=== PATIENT | female | born 1945 | race Caucasian/White ===

== ENCOUNTER → 2020-12-22 08:05 | Outpatient (CLI) | payer OTHER, SELFPAY ==
[2020-12-22 08:34] LABS: COVID19 -Nasal RAPID Negative (Negative)
== END ==
PROVIDERS: PCP Physician Assistant Medical; Visit Provider Physician Assistant
DX: Z01.812 Encounter for preprocedural laboratory examination (principal); Z20.822 Contact with and (suspected) exposure to COVID-19
CPT/HCPCS: 87635

== ENCOUNTER → 2020-12-22 10:35 | Outpatient (CLI) | payer OTHER, SELFPAY ==
[2020-12-22 10:42] LABS: Bacteria Urine None Seen; WBC Urine None Seen (0-5/HPF)
[2020-12-22 11:13] LABS: Add Manual Diff / Slide Review NO; Basophils Absolute Auto 100 /uL (0-100); Eosinophils Absolute Auto 300 /uL (0-450); Eosinophils Percent Auto 4.8 % (2-4); Hematocrit 39.1 % (36-46); Lymphocytes Absolute Auto 1400 /uL (1100-4500); Lymphocytes Percent Auto 19.8 % (25-40); Mean Corpuscular HGB Conc 33.4 % (30-36); Mean Corpuscular Hemoglobin 30.5 PG (26-34); Mean Corpuscular Volume 91.4 fL (80-100); Monocytes Absolute Auto 500 /uL (0-900); Monocytes Percent Auto 6.9 % (3-14); Neutrophils Absolute Auto 4700 /uL (1500-7000); Neutrophils Percent Auto 67.5 % (50-75); Platelet Count 212 X10^3/uL (150-400); Red Blood Cell Count 4.27 X10^6/uL (4.0-5.2); Red Cell Distribution Width 13.8 % (11.6-14.8)
[2020-12-22 11:15] LABS: Appearance Urine UA CLEAR; Bilirubin Urine UA NEGATIVE (NEGATIVE); Color Urine UA YELLOW; Glucose Urine UA NEGATIVE (Negative); Ketones Urine UA NEGATIVE (NEGATIVE); Leukocyte Esterase Urine UA NEGATIVE (NEGATIVE); Nitrite Urine UA NEGATIVE (Negative); Occult Blood Urine UA 1+ (Negative); Protein Urine UA NEGATIVE (Negative); Urobilinogen Urine UA 0.2 E.U./dL (0.2)
[2020-12-22 11:21] LABS: Hemoglobin A1C% w Est Avg Glu 5.7 % (4.0-6.0)
[2020-12-22 11:22] LABS: pH Urine UA 5.5 (4.5-8.0)
[2020-12-22 11:25] LABS: HEMOLYSIS < 15 (0-50)
[2020-12-22 11:26] LABS: BUN Creatinine Ratio 23.2 (6-22); Blood Urea Nitrogen 16 mg/dL (7-17); Calcium 10.8 mg/dL (8.4-10.2); Carbon Dioxide 29 mmol/L (22-32); Chloride 104 mmol/L (98-107); Estimated Glomerular Filt Rate > 60.0 mL/min (>60); Glucose 88 mg/dL (80-110); Sodium 139 mmol/L (137-145)
[2020-12-22 11:30] LABS: Culture Indicated Urine Cult Not Indicated; RBC Urine 0-1/HPF (0-5/HPF)
[2020-12-22 13:20] LABS: Potassium 4.2 mmol/L (3.4-5.1)
== END ==
PROVIDERS: PCP Physician Assistant Medical; Referring Provider Orthopaedic Surgery; Visit Provider Orthopaedic Surgery
DX: Z01.812 Encounter for preprocedural laboratory examination (principal); R73.9 Hyperglycemia, unspecified; N39.0 Urinary tract infection, site not specified; Z20.822 Contact with and (suspected) exposure to COVID-19
CPT/HCPCS: 36415; 80048; 81001; 83036; 85025; 87635

== ENCOUNTER → 2021-05-04 09:54 | Outpatient (CLI) | payer OTHER, SELFPAY ==
[2021-05-04 10:55] LABS: Add Manual Diff / Slide Review NO; Basophils Absolute Auto 100 /uL (0-100); Eosinophils Absolute Auto 300 /uL (0-450); Eosinophils Percent Auto 4.6 % (2-4); Hematocrit 36.8 % (36-46); Hemoglobin 12.5 g/dL (12.0-16.0); Lymphocytes Absolute Auto 1100 /uL (1100-4500); Lymphocytes Percent Auto 20.2 % (25-40); Mean Corpuscular Hemoglobin 30.6 PG (26-34); Mean Corpuscular Volume 89.8 fL (80-100); Monocytes Absolute Auto 400 /uL (0-900); Monocytes Percent Auto 7.4 % (3-14); Neutrophils Absolute Auto 3600 /uL (1500-7000); Neutrophils Percent Auto 66.8 % (50-75); Platelet Count 193 X10^3/uL (150-400); Red Blood Cell Count 4.09 X10^6/uL (4.0-5.2); Red Cell Distribution Width 13.1 % (11.6-14.8); White Blood Cell Count 5.4 X10^3/uL (4.5-11.0)
[2021-05-04 10:56] LABS: Hemoglobin A1C% w Est Avg Glu 5.3 % (4.0-6.0)
[2021-05-04 12:04] LABS: BUN Creatinine Ratio 19.5 (6-22); Blood Urea Nitrogen 17 mg/dL (7-17); Calcium 9.8 mg/dL (8.4-10.2); Carbon Dioxide 28 mmol/L (22-32); Chloride 104 mmol/L (98-107); Estimated Glomerular Filt Rate > 60.0 mL/min (>60); Glucose 90 mg/dL (80-110); HEMOLYSIS < 15 (0-50); Potassium 3.9 mmol/L (3.4-5.1); Sodium 137 mmol/L (137-145)
== END ==
PROVIDERS: PCP Physician Assistant Medical; Referring Provider Orthopaedic Surgery; Visit Provider Orthopaedic Surgery
DX: R73.9 Hyperglycemia, unspecified (principal); N39.0 Urinary tract infection, site not specified
CPT/HCPCS: 36415; 80048; 83036; 85025

== ENCOUNTER → 2021-05-16 13:09 | Outpatient (CLI) | payer OTHER, SELFPAY ==
[2021-05-16 17:59] LABS: COVID19 -Nasal RAPID Negative (Negative)
== END ==
PROVIDERS: PCP Physician Assistant Medical; Visit Provider Nurse Practitioner Family
DX: Z20.822 Contact with and (suspected) exposure to COVID-19 (principal)
CPT/HCPCS: 87635

== ENCOUNTER 2021-05-17 09:23 | Day surgery (SDC) | payer OTHER, SELFPAY ==
[2021-05-04 07:36] VITALS: BMI 28.1
[2021-05-17 09:54] VITALS: BP 156/73; PULSE 72; RESP 16; TEMP 36.4; O2SAT 98; BMI 28.1
[2021-05-17] MEDS: MELOXICAM 7.5 MG TABLET 15 MG PO (10:12)
[2021-05-17] MEDS: ACETAMINOPHEN 325 MG TABLET 975 MG PO (10:12)
== END 2021-05-17 09:25 | disposition home or self-care (01) ==
LOC: OR 09:24 → AC 12:57
PROVIDERS: PCP Physician Assistant Medical; Referring Provider Physician Assistant Medical; Visit Provider Orthopaedic Surgery
DX: M16.11 Unilateral primary osteoarthritis, right hip (principal); Z53.09 Procedure and treatment not carried out because of other contraindication
CPT/HCPCS: 27130

== ENCOUNTER → 2021-05-23 10:25 | Outpatient (CLI) | payer OTHER, SELFPAY ==
[2021-05-23 11:29] LABS: COVID19 -Nasal RAPID Negative (Negative)
== END ==
PROVIDERS: PCP Physician Assistant Medical; Visit Provider Physician Assistant
DX: Z20.822 Contact with and (suspected) exposure to COVID-19 (principal)
CPT/HCPCS: 87635

== ENCOUNTER 2021-05-24 05:49 | Day surgery (SDC) | payer OTHER, SELFPAY ==
[2021-05-19 13:32] VITALS: BMI 28.1
[2021-05-24] VITALS (14 sets, daily range): BP systolic 106–161; BP diastolic 48–93; PULSE 63–101; RESP 10–17; TEMP 35.5–37.1; O2SAT 93–100; BMI 28.1
[2021-05-24] MEDS: LACTATED RINGERS 1,000 ML 42 ML IV (06:50)
[2021-05-24] MEDS: VANCOMYCIN 1,000 MG/200 ML PIGGYBACK 200 MG IV (06:58)
[2021-05-24] MEDS: CELECOXIB 200 MG CAPSULE PO (07:29)
--- NOTE | 2021-05-24 07:47 | PM.PREOP ---
Pre-operative Note COVID-19 COVID-19 status: Negative Interval Note History & Physical reviewed/Exam performed by Physician: Yes Changes to H&P: No
--- NOTE | 2021-05-24 07:48 | PM.OP.1 ---
Operative Date/Time/Diagnoses Date of procedure: 05/24/21 Time of procedure: 07:50 Pre-op diagnosis: right hip OA Post-op diagnosis: same Procedure & Clinicians Procedure: Right total hip arthroplasty anterior approach Same procedure as scheduled: Yes Indications: The patient has had progressively worsening right hip pain with radiographic changes consistent with arthritis. Non-operative management has failed and the patient has requested total hip replacement. The risks, benefits and alternatives to surgery were discussed with the patient prior to proceeding. Risks discussed included, but were not limited to, failure to relieve pain, leg length discrepancy, dislocation, stiffness, infection, nerve damage, deep venous thrombosis, pulmonary embolism, stroke, coma, heart attack, permanent paralysis and , as well as the potential need for eventual revision of the prosthetic. Surgeon: Rosanna Reeder Disability Representative: Keegan Garza Anesthesia Type: General and Spinal Operative Notes Findings: Severe right hip osteoarthritis, soft bone adequate stability Closure Type: primary Specimen(s): none sent Prosthetic devices, grafts, tissues, transplants, or devices: Reeder and nephew size 6 standard offset anthology, 54 mm R3 cup, 36 by -3 Oxinium femoral head, 6.5 mm x 15 mm screw Estimated Blood Loss (mL): 250 Blood products transfused: none Procedure in detail: The patient was brought to the operating room. Patient was carefully positioned in the supine position. Time-out was performed and antibiotics were given. Anesthesia was induced. She was positioned in the on the table in order to allow hyperextension of the hip. The right lower extremity was prepped and draped in a standard sterile fashion. An anterior right hip incision was made 1 fingerbreadth lateral to the anterior superior iliac spine and extended distally towards the greater trochanter. Dissection was carried out through skin and subcutaneous tissues. The skin and subcutaneous tissues were carefully injected with Lidocaine with epi. Superficial hemostasis was achieved. The fascia over the tensor fascia autumn was defined and incised with a knife. Two Allis clamps were used to grasp the fascia. Tensor fascia autumn was retracted laterally. A gelpi retractor was placed. Dissection was carried out down along the neck. The circumflex vessels were carefully identified and cauterized with the Aqua Mantis. There was good visualization of the femoral neck. A Cobra was placed superior to the neck and the gluteus fibers were carefully stripped from that superior aspect of the capsule. A 2nd retractor was placed along the inferior aspect of the neck. The rectus insertion along the capsule was partially released. A 3rd retractor that was then gently placed over the rim of the acetabulum under the rectus. Capsule was carefully incised and released from the intertrochanteric line circumferentially superior to the mid sagittal line and inferiorly to the mid sagittal line until the lesser trochanter was palpable. A tag stitch was placed both in the superior and inferior limb of the capsular insertion. Along the acetabulum capsule was also released up to the mid sagittal 12:00 position. A portion of the labrum was resected. A saw was used to perform an osteotomy at the level of the intertrochanteric line and the junction of the superior femoral neck leaving approximately 1 finger breath of residual inferior neck above the lesser trochanter. A 2nd cut was made along the femoral neck at the base of the head and a napkin ring of neck was removed. Corkscrew was placed in the femoral head and the head was removed without difficulty. Retractors were then repositioned around the acetabulum. Residual labrum was resected and additional osteophytes were removed. A reamer that was 4 mm below the templated size was placed by hand in the acetabulum and it was reamed to centralize the acetabulum. It was then reamed up to 2 under the templated size and fluoroscopy was brought in to confirm the position of the reaming and depth of reaming. I reamed 1 under the anticipated size. A trial cup was placed and noted that it was appropriately sized and fluoroscopy confirmed position and depth. The component was open and inserted without difficulty fluoroscopic imaging was used to confirm that the cup had been adequately seated and was well positioned. It was further stabilized with a single screw. Neutral poly liner was placed. The cup was tested and noted to be stable. Attention was then directed to the femur. The femur was gently hyperextended additional capsular release was performed as needed in order to allow adequate visualization of the proximal femur with elevation of the femur. Patient was placed in a hyperextended slightly adducted position with maximum external rotation. Box osteotome was used to check for any residual neck as well as sclerotic bone along the trochanter. [place] pepper was placed in the femur. Additional broaching was performed. Canal finder was used to determine the alignment of the canal and position. Size 1 broach was placed. The canal was then appropriately broached up to the templated size as long as there was adequate stability of the broach and serial advancement of the broach without excessive impingement. Specific attention was directed at avoiding varus attempting to direct the distal aspect of the broach more anteriorly and avoiding excessive anteversion. The stem was noted to be tight in the femoral canal. Trial reduction showed acceptable range of motion, good stability, no posterior impingement, spiritism of leg length and appropriate lateral shuck. I also hyperflexed the hip and checked that there was no impingement anteriorly and there was good stability with flexion, adduction and internal rotation. Marcaine and Exparel were injected. The stem was placed without difficulty. Repeat trial reduction and x-ray showed acceptable overall position, length, and no evidence of the femoral fracture. Final head was placed. Wound was meticulously irrigated with normal saline. The hip was reduced and additional Exparel and Marcaine were injected. The capsule was closed with interrupted nonabsorbable sutures. The fascia of the tensor was closed with interrupted and running Vicryl. No drain was placed. Any tensor fascia autumn muscle that appeared to be contused or injured which was a minimal amount was carefully resected. Capsule around the tensor was injected with Exparel and Marcaine. The skin was closed with barbed stitches for the subcutaneous tissue and skin. We also used surgical glue. The wound was dressed sterilely. Brief Betadine soak was also used and was meticulously irrigated with normal saline. Patient was transferred to recovery room in satisfactory condition. Complications: none Post-operative Condition: stable Disposition: Acute Care Plan for aftercare: The patient will be maintained on a standard total hip replacement protocol with weight bearing as tolerated and anterior hip precautions. The patient will receive Aspirin and sequential compression devices for DVT prophylaxis. The patient will be discharged home when safe for the home environment.
[2021-05-24] MEDS: CEFAZOLIN 2 GM/20 ML SYRINGE IV ×3 (08:02→23:30)
[2021-05-24] MEDS: TRANEXAMIC ACID 1,000 MG VIAL 2000 MG INJ ×2 (08:10→10:37)
--- NOTE | 2021-05-24 08:35 | SUR.OPER ---
Supine on padded [place] table with bilateral legs secured in padded positioning boots and suspended in positioning spars, operative leg in traction per surgeon. Head on one pillow. Arm on non-operative side secured on padded armboard <90 degrees abduction. Arm on operative side padded and resting across chest then secured with tape over sheet. Padded perineal post in place per surgeon.
[2021-05-24] MEDS: BUPIVACAINE LIPOSOME 266 MG/20 ML VIAL INJ (08:44)
[2021-05-24] MEDS: BUPIVACAINE 0.25% (PF) 30 ML, EPINEPHrine 0.15 MG INJ (08:44)
--- NOTE | 2021-05-24 10:32 | DI.RAD.S_ITS ---
PROCEDURE: XR PELVIS 1-2V INDICATIONS: RT TOTAL HIP TECHNIQUE: Intra-operative view of the pelvis and hip acquired. 2 images. COMPARISON: [facility], CR, XR HIP W PEL IF DONE RT 2V, 05/24/2021, 12:13. FINDINGS: Bones: Intraoperative devices prior to placement of arthroplasty prostheses are in expected positions. No fractures or suspicious bony lesions. Soft tissues: Overlying surgical retractors are present, along with other intraoperative changes. IMPRESSION: Expected intraoperative location of the right hip arthroplasty. Dictated by: Preston Kaur M.D. on 05/24/2021 at 12:57 Approved by: Preston Kaur M.D. on 05/24/2021 at 12:58
--- NOTE | 2021-05-24 10:33 | DI.RAD.S_ITS ---
PROCEDURE: XR HIP W PEL IF DONE RT 2V INDICATIONS: RT TOTAL HIP TECHNIQUE: AP pelvis and lateral view of the right hip acquired. COMPARISON: [facility], [place], XR PELVIS 1-2V, 05/24/2021, 10:22. FINDINGS: Bones: Patient is status post right hip arthroplasty, with hardware components in expected positions. The hip joint appears congruent. The visualized bony structures appear intact. Soft tissues: Overlying postoperative changes are noted. No suspicious soft tissue densities. IMPRESSION: Expected immediate postoperative appearance of right hip arthroplasty. Dictated by: Chris Schaffer [facility] Interpreted: Odilia Esqueda MD on 05/24/2021 at 13:06 Transcribed by: JASON on 05/24/2021 at 13:06 Approved by: Odilia Esqueda MD, PhD on 05/24/2021 at 14:25
--- NOTE | 2021-05-24 11:31 | SUR.PHASEI ---
Report to Avel SANDERSON
[2021-05-24] MEDS: HYDROMORPHONE 2 MG TABLET PO (12:17)
[2021-05-24] MEDS: ONDANSETRON 4 MG/2 ML INJ IV ×2 (12:18→20:59)
[2021-05-24] MEDS: LACTATED RINGERS 1,000 ML 125 ML IV (12:46)
[2021-05-24] MEDS: IBUPROFEN 400 MG TABLET PO ×2 (12:51→20:36)
--- NOTE | 2021-05-24 15:10 | PT.IPTN ---
Current Diagnoses Unilateral primary osteoarthritis, right hip (05/24/21) Surgery Performed Operation Date: 05/24/21 07:45 Actual Procedures p Total Hip Arthroplasty/Anterior Approach(Right) - Rosanna Reeder MD Physical Therapy Treatment Note M3 PT-IP Subjective Start: 05/24/21 16:23 Freq: NEEDED Status: Active Protocol: Document 05/24/21 15:10 AB (Rec: 05/24/21 16:27 AB [id number]) Subjective Physical Therapy Visit Type Type Patient Refusal Notes pt refused PT. stated that she wants to do it tomorrow morning. PLOF and home set up obtained.
[2021-05-24] MEDS: ACETAMINOPHEN 325 MG TABLET 650 MG PO ×2 (15:33→20:36)
[2021-05-24] MEDS: METOPROLOL ER 50 MG TABLET 150 MG PO (20:35)
[2021-05-24] MEDS: ASPIRIN EC 81 MG TABLET PO (20:36)
[2021-05-24] MEDS: DOCUSATE 100 MG CAPSULE PO (20:36)
[2021-05-25 00:08] VITALS: RESP 16
[2021-05-25] MEDS: IBUPROFEN 400 MG TABLET PO ×4 (02:49→13:23)
[2021-05-25 02:51] VITALS: BP 130/75; PULSE 95; RESP 16; TEMP 36.6; O2SAT 97
[2021-05-25 06:53] LABS: Hematocrit 33.7 % (36-46); Hemoglobin 11.5 g/dL (12.0-16.0)
[2021-05-25 07:25] VITALS: BP 153/74; PULSE 91; RESP 16; TEMP 36.3; O2SAT 94
[2021-05-25 07:55] VITALS: O2SAT 94
--- NOTE | 2021-05-25 08:30 | PT.IIE ---
Current Diagnoses Unilateral primary osteoarthritis, right hip (05/24/21) Surgery Performed Operation Date: 05/24/21 07:45 Actual Procedures p Total Hip Arthroplasty/Anterior Approach(Right) - Rosanna Reeder MD Medical History (Last Reviewed 05/25/21 @ 10:44 by Keegan Garza PA-C) Breast cancer (2017) CAD (coronary artery disease) Encephalitis HLD (hyperlipidemia) [place] (hard of hearing) HTN (hypertension) Hypothyroidism Jaundice Osteoarthritis SVT (supraventricular tachycardia) Physical Therapy Inpatient Evaluation/Re-Eval M1 PT/OT-IP Prior Functional Status Start: 05/24/21 16:23 Freq: NEEDED Status: Active Protocol: Document 05/25/21 08:30 AB (Rec: 05/25/21 11:22 AB [email or web address]) Medical Review Prior Functional Status Medical History Reviewed Yes Mobility and Gait pt stated that she is independent with all mobilities and ambulation without AD Social History Household Members spouse Living Arrangements House Number of Floors (Floors) Two Floors Number of Stairs To Enter/Railing? 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 M2 PT-IP Current Condition Start: 05/24/21 16:23 Freq: NEEDED Status: Active Protocol: Document 05/25/21 08:30 AB (Rec: 05/25/21 11:22 AB [email or web address]) Physical Therapy Current Condition Current Condition Evaluation Date 05/25/21 Treatment Diagnosis s/p R RIGOBERTO anterior approach; difficulty in walking Onset Date 05/24/21 M3 PT-IP Subjective Start: 05/24/21 16:23 Freq: NEEDED Status: Active Protocol: Document 05/25/21 08:30 AB (Rec: 05/25/21 11:22 AB [email or web address]) Subjective Physical Therapy Visit Type Type Initial Evaluation Visit Start Time 08:30 Visit Stop Time 09:07 Total Visit Minutes 37 Number of DECKHAND Visits 0 Physical Therapy Visit Comments Patient Comments agreeable to do PT; has slight confusion Therapy Pain Assessment Pain When Pain Assessed At Rest Pain Present Pain Present Pain Reported Location Right Hip Scale Used pain scale not stated but pain increases with mobility Description Sharp Pain Management Techniques Distraction,Modification of Treatment,Re-positioning, Timing of Activity with Medications M4 PT-IP Mobility and Gait Start: 05/24/21 16:23 Freq: NEEDED Status: Active Protocol: Document 05/25/21 08:30 AB (Rec: 05/25/21 11:22 AB [email or web address]) PT-Bed Mobility Assessment Supine to Sit Supine to Sit Standby Assistance PT-Transfer Assessment Sit to and From Stand Sit to and from Stand Contact Guard Assistance,1 Person Assistance Equipment Transfer Assistive Device Gait Belt,Front Wheeled Walker Orthotic/Prosthetic Devices or Brace: No Transfers Transfer Destination Chair Transfer Technique Stand Step Pivot Transfer Ability Level of Assist Contact Guard Assistance,Use of Upper Extremities Comments Mobility Comments educated pt on hip precautions and pt requires cues to recall. completed supine to sit SBA. able to sit on EOB SBA. completed step transfer to chair using FWW CGA and cues for hip precautions. pt ambulated in room using FWW ~ 30 ft CGA and cues. pt with decrease safety awareness affecting mobility. pt agreed to do stairs. ambulated in the hallway using FWW ~ 75 ft CGA to min A and cues. c/o increase R hip pain. educated on stair climbing. completed up/down stair holding on to R rail with B hands min A and max cues. repeated x 2 sets. pt assisted back to her room. ambulated from w/c to the chair using FWW CGA to min A. Asked pt if spouse can come in for caregiver training and stated that spouse is working today and tomorrow and will not be able to come for training. Asked pt to just call and let her spouse know regarding caregiver training. positioned pt on the chair. call light and table placed within reach. nurse in room and aware of pt' s mobility and pt is not ready for d/c at this time. Gait Assessment Gait Gait Assistance Required: Contact Guard Assist,Minimum Assistance Distance (Feet) 75 Able to Maintain Weight Bearing Status Yes During Gait Assistive Devices Assistive Device Gait Belt,Front Wheeled Walker Orthotic/Prosthetic Devices or Brace: No Gait Deviations General Gait Pattern Antalgic,Decreased Stride Length,Decreased Feet Clearance,Step-to Gait Factors Limiting Gait Function Factors Limiting Gait Function Decreased Activity Tolerance, Decreased Strength,Limited Range of Motion,Pain,Poor Balance,Poor Safety Awareness Stair Climbing Assessment Evaluation Level of Assist On Stairs Minimal Assistance Devices Stair Climbing Assistive Devices Right Railing Technique/Endurance Stair Climbing Direction Ascend and Descend Stair Climbing Technique Step to Step Number of Steps Climbed 3 Query Text: Stair Climbing Set # Repetitions (reps) 2 PT-Balance Assessment Sitting Balance and Reactions Static Sitting Balance Ability Good Dynamic Sitting Balance Ability Good Standing Balance and Reactions Static Standing Balance Ability Fair Dynamic Standing Balance Ability Fair Device Used FWW M5 PT-IP Objective Assessments Start: 05/24/21 16:23 Freq: NEEDED Status: Active Protocol: Document 05/25/21 08:30 AB (Rec: 05/25/21 11:22 AB [email or web address]) Orientation Orientation/Cognition Level of Alertness Alert Orientation Name,Place,Situation Safety Awareness Decreased Safety Awareness Memory Description Short Term Impaired Gross Range of Motion Lower Extremity ROM Assessment Within Functional Limits Strength Lower Extremity Strength Assessment Right Impaired Hip 3+/5 Knee 4-/5 Sensation Assessment Sensation Gross Sensation WNL Muscle Tone Muscle Tone WNL Yes M6 PT-IP Treatment Start: 05/24/21 16:23 Freq: NEEDED Status: Active Protocol: Document 05/25/21 08:30 AB (Rec: 05/25/21 11:22 AB [email or web address]) Physical Therapy Treatment Education Education Provided Precautions,Weight Bearing Status,Post-Op Packet,Safety M7 PT-IP Assessment and Plan Start: 05/24/21 16:23 Freq: NEEDED Status: Active Protocol: Document 05/25/21 08:30 AB (Rec: 05/25/21 11:22 AB [email or web address]) PT Summary Assessment and Plan Potential Rehabilitation Potential Fair Status of Condition at Evaluation Stable Summary Impairments Pain,ROM,Strength,Balance, Coordination,Sensation,Tone, Cognition,Bed Mobility, Transfers,Gait,Activity Tolerance Assessment Summary pt requiring CGA to min A with mobility and requires max cues for hip precautions and safety. pt can be impulsive. informed pt regarding mobility and need for caregiver training and stated that spouse will not be able to come for training. will continue to assess progress for safe d/c plan. Goals Bed Mobility Goal Independent Transfer Goal Independent,Front Wheeled Walker Gait Goal Independent,Front Wheel Walker Gait Distance 200 Days to Meet Goals 5 Frequency of Treatment Frequency Of Treatment Twice a Day Treatment Plan Physical Therapy Treatment Plan Bed Mobility Training,Transfer Training,Gait Training, Therapeutic Exercise,Balance Retraining,Post Op Education, Discharge Planning,Hot or Cold Pack,Neuromuscular Re-ed, Coordination Retraining,Manual Therapy Precautions Anterior Hip Precautions No Hip Extension,No Hip External Rotation Weight Bearing Status Weight Bearing Status Weight Bear as Tolerated Allowed Weight Bearing Amount (enter % WBAT RLE or #) (%) Recommendations To Nursing Amount of Assist Needed 1 Person Assist Discharge Recommendations PT Discharge Recommendations Home with Assistance,Home with / Assist Available, Outpatient PT Transportation Needs at Discharge Private Vehicle
[2021-05-25] MEDS: ACETAMINOPHEN 325 MG TABLET 650 MG PO ×2 (09:01→15:00)
[2021-05-25] MEDS: DOCUSATE 100 MG CAPSULE PO (09:01)
[2021-05-25] MEDS: METOPROLOL ER 50 MG TABLET 150 MG PO (09:01)
[2021-05-25] MEDS: ASPIRIN EC 81 MG TABLET PO (09:01)
[2021-05-25] MEDS: ATORVASTATIN 20 MG TABLET PO (09:02)
--- NOTE | 2021-05-25 10:42 | P.DS_ITS ---
History of Present Illness History of Present Illness Date Patient Seen: 05/25/21 Time Patient Seen: 07:45 Chief complaint: Hip pain Narrative: Patient's pain is [id number]. Denies fever or chills. No nausea or vomiting. Discharge Providers Provider Discharge Date: 05/25/21 Primary care physician: Stacey Zaragoza PA-C Consults: 05/24/21 08:59 Consult to Anesthesiology Routine Comment: Consulting Provider: Anesthesiologist Reason for consultation: Regional block for post operative pain control 05/24/21 12:33 Consult to Discharge Planning Routine Comment: Consult to Physical Therapy Evaluate & Treat Comment: Physician Instructions: post op RIGOBERTO protocol Consult to Respiratory Therapy Evaluate & Treat Comment: Physician Instructions: Evaluate and treat Discharge provider: Keegan Garza PA-C Summary Hospital Course Discharge Diagnosis: right hip OA Hospital Course: Patient admitted to the hospital for right total hip arthroplasty, anterior approach. Patient consented to the same. Patient taken to the operating room on May 24, 2021. Patient back in her room recovering well as in stable condition. Patient will work with physical therapy and be discharged home today if safe for home environment. Exam Vital Signs (past 8 hours): - 05/25/21 02:51 05/25/21 07:25 05/25/21 07:55 Temperature 97.8 F 97.3 F L Pulse Rate 95 H 91 H Respiratory Rate 16 16 Blood Pressure 130/75 153/74 H Pulse Oximetry 97 94 94 Oxygen Delivery Method Room Air Oxygen Flow Rate 0 Narrative Exam Narrative: Pleasant 76-year-old female resting comfortably in bed in no apparent distress. Dressing is Clean, dry, intact.. Motor functions intact distal lower extremities. Sensation grossly intact to light touch bilateral lower extremities. Objective Labs Result Diagrams: 05/25/21 06:35 Labs: Laboratory Results - last 24 hr 05/25/21 06:35 Hgb 11.5 L Hct 33.7 L PFSH Medical History Breast cancer (2017) CAD (coronary artery disease) Encephalitis HLD (hyperlipidemia) [place] (hard of hearing) HTN (hypertension) Hypothyroidism Jaundice Osteoarthritis SVT (supraventricular tachycardia) Surgical History H/O cardiac radiofrequency ablation (2006) History of hysterectomy History of lumpectomy of left breast (07/11/17) Hx of tonsillectomy Social History household members: spouse Smoking Status: Never smoker alcohol intake: current Discharge Assessment & Plan Assessment and Plan Assessment: Patient progressing as expected status post right total hip arthroplasty, anterior approach Plan of Treatment: Discharge home today after physical therapy if safe for home environment. Discharge Plan Discharge Plan Patient Disposition: Home Discharge orders & Medications Discharge Orders: Discharge (Order); Ordered 05/25/21 Ordered By: Keegan Garza Prescriptions: New acetaminophen 325 mg Tablet 650 mg PO TID Qty: 60 0RF aspirin 81 mg Tablet,Delayed Release (Dr/Ec) 81 mg PO BID Qty: 60 0RF docusate sodium 100 mg Capsule 100 mg PO BID Qty: 20 0RF tramadol 50 mg Tablet 50 mg PO QID PRN (Reason: Pain, Moderate (4-6)) Qty: 60 0RF Continued atorvastatin [Lipitor] 20 MG tablet 20 mg PO QAM Qty: 0 0RF metoprolol succinate [Toprol XL] 100 MG tablet extended release 24 hr 150 mg PO BID Qty: 0 0RF Discontinued ibuprofen 800 mg Tablet 800 mg PO BID 0RF Follow up/Referrals: Rosanna Reeder MD [Physician] - (2 weeks) Stacey Zaragoza PA-C [Primary Care Provider] - Diet/Activity/Treatments Diet: Diet as Tolerated Activity: Weight-bearing as tolerated with anterior hip precautions Cold/Heat Therapy: Ice as needed Skin/Wound/Dressing Care Report to your healthcare provider any signs of infection, such as:: chills, fever, night sweats, increased pain, unusual drainage and unusual redness Dressing: Keep dressing clean and dry Visit Report/Discharge Packet Instructions: DI for Hip Replacement Stand Alone Forms: Surgery Discharge Discharge Data Primary Care Provider: Stacey Zaragoza Attending Provider: Rosanna Reeder Quality VTE Deep Vein Thrombosis/Pulmonary Embolism Present on Admission: No
[2021-05-25 11:59] VITALS: BP 124/66; PULSE 84; RESP 16; TEMP 36.6; O2SAT 97
[2021-05-25] MEDS: ONDANSETRON 4 MG/2 ML INJ IV (12:02)
[2021-05-25] MEDS: TRAMADOL 50 MG TABLET PO (12:04)
--- NOTE | 2021-05-25 13:56 | CM.DANOTE ---
DCP Assessment: Patient is a 76 yr old female who had a Rt TKA preformed by Dr. Sanchez. CM met [facility] patient at the bedside and explained role. patient was alert and oriented at time of visit. patient currently lives in [place] with her in a single level home. Patient is independent at baseline and drives. 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 Patient requested information on state temporary disability which CM printed and gave her to review. patient has been in pain today and is planning on working with PT and her on caregiver training later today. PT recommends home with Assistance and Outpatient PT. I: [facility] and self pay Plan: DC home with her when medically stable. NO identified DC planning needs identified at this time. Margaret Sanchez RN Case manger. Discharge Planning/Care Management CM Discharge Assessment Start: 05/25/21 13:51 Freq: Status: Active Protocol: Document 05/25/21 13:51 HS (Rec: 05/25/21 13:54 HS [id number]) Discharge Planning Assessment Assigned Household Cook Margaret sanchez RNa operator DPOA/Assigned Designee Name Panchito Capellan () Contact Information [phone] Advance Directives? No History Provided By Patient Has Patient been admitted in last 30 No days? Prior Living Arrangements House Household Members spouse Type of transporation used prior to Drives own vehicle admit Independent with ADL's Yes Is patient alert and oriented? Yes Caregiver for Another No DME Already Rented / Owned FWW / Walker Barriers to Discharge No Discharge Plan Home Referrals Initiated None needed Whiteboard Updated in Patient Room with Yes name and ext. # of Household Cook Review Status In Process Next Review Type Continued Stay Review Pre-Anesthesia Assessment Start: 05/19/21 13:32 Freq: Status: Complete Protocol: Document 05/19/21 13:32 CAB (Rec: 05/19/21 13:38 CAB [id number]) Pre-Anesthesia Assessment PAC Comment Previous surgery 05/17/21 cancelled due hospital at full capacity. PAC phone assessment completed 05/04/21. Chart review for this surgery completed using prior PAC assessment Preferred Name Leela or Frances Patient Information Reviewed Via Chart Review Diagnostic Results BMP/CMP,CBC,EKG,Urinalysis Comment Labs @ [facility] 12/22/20, outside EKG 08/22/20 scanned, COVID screen @ 05/23/21 Primary Care Provider Stacey Zaragoza Seen Specialist in Last 12 Months Yes Specialist Seen Protective Services Officer,Orthopedist Primary Language Palestinian Adjunct Communications Faculty Member Required No Height 170.18 cm Weight 81.647 kg Body Mass Index (BMI) 28.1 Hearing Ability Hard of Hearing,Use of Hearing Aid Visual Assist Magnifying Glass Dentition Type Teeth, Natural Present Barriers to Learning None Hx Anesthesia Reactions Yes: Severe PONV Hx Family Anesthesia Reaction Yes: My dad got sick Hx Malignant Hyperthermia No Hx Blood Transfusions Yes: r/t breast cancer Hx Blood Transfusion Reaction No Anesthesia Review Requested No alcohol intake current Alcohol Intake Frequency Other: Occasional Smoking Status Never smoker Substance Use Type does not use Pain Present Pain Reported Musculoskeletal Symptoms Abnormal Gait,Difficulty Walking,Joint Pain History of Falling (Recent or History of No ) Patient is completely paralyzed or No completely immobile Mental Status Oriented to own ability Is patient on oxygen? No Does patient have SO/SOB No Hx Sleep Apnea No CPAP/BIPAP use not prescribed Currently Taking a Beta Pacheco Yes: Metoprolol Hx Chest Pain No Hx SOB No Hx Syncope or Dizziness Yes: Lightheadedness, resolved with hydration Anti-Coagulant Therapy No Has a Protective Services Officer Yes: Dr. Connell-last visit 03/11 Cardiac Testing Yes: Echo [email or web address] 03/21/21 Hx Pacemaker/ICD No Pacemaker Rep Required? No Comment Cardiac records scanned Diet Type At Home Regular dysphagia No Urinary Catheter Present No Hx Urinary Self Catheterization No Diabetes No HgbA1C 5.7 Date 12/22/20 Patient No Lactating No Hx Drug Resistant Organism No Presence of External or Internal Medical No Devices Have you had any close contact with No someone diagnosed with COVID-19? Received a COVID vaccine? Yes Received all doses? Yes Marital Status Lives With spouse Prior Living Arrangements House Number of Floors (Floors) Two Floors Support System Spouse Does the Patient Have Assistance After Yes Surgery Patient Discharge Plan Description Return Home Comment Pt advised overnight length of stay per surgeon Feels Safe in Current Environment Yes Been Physically Hurt or Threatened By a No Person in Current Environment Do you have thoughts of harming yourself None or others? Are you currently considering suicide? No Do you have a plan to hurt yourself or No Plan others? Do You Have Any Spiritual Beliefs That No May Affect Your HC Choices? Do You Have Any Cultural Practices That No May Affect Your HC Choices? Comment Church Who Can We Speak to About Patient's Care Family, friends Identifying Code for Release of Patient Declines to issue Information Health Care Proxy/Next of Kin Panchito () Health Care Proxy Emergency Contact Name Panchito () Emergency Contact Advance Directives? No Power of Recoverer No PAC Instructions Do not shave/clip surgical site,Durable medical equipment ,Medications to take/avoid, Nasal antibiotic,No ETOH/ petroleum product on skin DOS, NPO,Post-op transportation,Pre -surgical wash,Sensory aids, Sturdy shoes/comfortable clothes,Do not bring valuables and remove jewelry
--- NOTE | 2021-05-25 16:02 | PT.IPTN ---
Current Diagnoses Unilateral primary osteoarthritis, right hip (05/24/21) Surgery Performed Operation Date: 05/24/21 07:45 Actual Procedures p Total Hip Arthroplasty/Anterior Approach(Right) - Rosanna Reeder MD Physical Therapy Treatment Note M2 PT-IP Current Condition Start: 05/24/21 16:23 Freq: NEEDED Status: Discharge Protocol: Document 05/25/21 15:30 SP (Rec: 05/25/21 16:56 SP [id number]) Physical Therapy Current Condition Current Condition Evaluation Date 05/25/21 Treatment Diagnosis s/p R RIGOBERTO anterior approach; difficulty in walking Onset Date 05/24/21 M3 PT-IP Subjective Start: 05/24/21 16:23 Freq: NEEDED Status: Discharge Protocol: Document 05/25/21 15:30 SP (Rec: 05/25/21 16:56 SP [id number]) Subjective Physical Therapy Visit Type Type Treatment Note Visit Start Time 15:30 Visit Stop Time 16:02 Total Visit Minutes 32 Notes completed caregiver training: donned gait belt and provided all assist needed throughout tx. Vitals taken during tx: seated in chair post mobility: BP 115/ 75 HR 86 2 min reclined in chair: PB 110/73 HR 83. Number of TORCH BURNER Visits 1 Physical Therapy Visit Comments Patient Comments Pt agreeable to working with therapy and complete CGT with . Therapy Pain Assessment Pain When Pain Assessed During Mobility Pain Present Pain Present Pain Reported Location Right Hip Intensity 5 Scale Used Numeric (0 - 10) Description Aching Pain Behaviors Facial Grimacing,Holding Area Pain Management Techniques Distraction,Modification of Treatment,Re-positioning, Timing of Activity with Medications M4 PT-IP Mobility and Gait Start: 05/24/21 16:23 Freq: NEEDED Status: Discharge Protocol: Document 05/25/21 15:30 SP (Rec: 05/25/21 16:56 SP [id number]) PT-Bed Mobility Assessment Supine to Sit Supine to Sit Standby Assistance Scooting Scooting to Edge of Bed Standby Assistance PT-Transfer Assessment Sit to and From Stand Sit to and from Stand Standby Assistance,Contact Guard Assistance,Use of Upper Extremities Equipment Transfer Assistive Device Gait Belt,Front Wheeled Walker Orthotic/Prosthetic Devices or Brace: No Transfers Transfer Destination Chair,Wheelchair Transfer Technique ambulated w/ FWW Transfer Ability Level of Assist Contact Guard Assistance, Minimal Assistance,1 Person Assistance,Use of Upper Extremities Comments Mobility Comments Continued education on hip precautions recalled 1/2, missed no hip ER. Cued small steps during pivoting and not let LLE pass RLE to maintain no hip ext with good cues from during gait. Instruction on post op hip ther ex: AP, heel slide, quad and glut set with hand outs shown for recall. Pt stated all new information and still has numbness inR anterior thigh. supine>sit, scoot to EOB SBA. donned gait belt in sitting, sit>stand and forward gait CG- Min A using FWW step to patterning to w/c in hallway 20 ft, reported shooting pain R anterior thigh x4 with noted instability over RLE during midstance phase WB. Cued for step to gait to maintain no hip ext precautions. Stand>sit Esha good BUE WB on wc arms with cues for slow descent. Pt wheeled down to stairs, completed ascend/descend 3 stairs L HR and SPC in RUE CG- Min A by with occasional cuing for proper step to patterning LLE lead ascend by TORCH BURNER then carryover cues from as needed. Pt was able to progress gait approx 70 ft using fWW, cued for body closer to FWW, awareness of maintain step to patterning. Pt sat in w/c and wheeled back to room, reported feeling dizzy. BP check 115/ 75 slight decrease from previous 120s/70s with nursing earlier. After SPT to chair CG- Esha w/ FWW via support, Min A sit into chair, reclined back pillows under BLE, 2 min BP recheck 116/ 50, she states has had vertigo issues in the past but feeling better reclined. Pt had call light and all needs in reach, in room when left. Offered CP to R thigh but stated will ask nursing for support. TORCH BURNER reported mobiltiy progression to nurse, dizziness awareness but pt ready to return home when medically stable and to assist her 25/12. Pt reported will call tomorrow to set up outpt therapy. Gait Assessment Gait Gait Assistance Required: Contact Guard Assist,Minimum Assistance Distance (Feet) 70 Able to Maintain Weight Bearing Status Yes During Gait Assistive Devices Assistive Device Gait Belt,Front Wheeled Walker Orthotic/Prosthetic Devices or Brace: No Gait Deviations General Gait Pattern Antalgic,Decreased Stride Length,Decreased Feet Clearance,Flexed Trunk,Step-to Gait Factors Limiting Gait Function Factors Limiting Gait Function Decreased Activity Tolerance, Decreased Sensation,Decreased Strength,Limited Range of Motion,Pain,Poor Balance,Poor Safety Awareness Stair Climbing Assessment Evaluation Level of Assist On Stairs Contact Guard Assistance, Minimal Assistance,1 Person Assistance Devices Stair Climbing Assistive Devices Straight Cane,Left Railing Technique/Endurance Stair Climbing Direction Ascend and Descend Stair Climbing Technique Step to Step Number of Steps Climbed 3 Stair Climbing Set # Repetitions (reps) 2 Comments Stair Climbing Comments see mobiliy comments PT-Balance Assessment Sitting Balance and Reactions Static Sitting Balance Ability Normal Dynamic Sitting Balance Ability Good Standing Balance and Reactions Static Standing Balance Ability Fair Dynamic Standing Balance Ability Fair Device Used FWW M5 PT-IP Objective Assessments Start: 05/24/21 16:23 Freq: NEEDED Status: Discharge Protocol: Document 05/25/21 08:30 AB (Rec: 05/25/21 11:22 AB [id number]) Orientation Orientation/Cognition Level of Alertness Alert Orientation Name,Place,Situation Safety Awareness Decreased Safety Awareness Memory Description Short Term Impaired Gross Range of Motion Lower Extremity ROM Assessment Within Functional Limits Strength Lower Extremity Strength Assessment Right Impaired Hip 3+/5 Knee 4-/5 Sensation Assessment Sensation Gross Sensation WNL Muscle Tone Muscle Tone WNL Yes M6 PT-IP Treatment Start: 05/24/21 16:23 Freq: NEEDED Status: Discharge Protocol: Document 05/25/21 15:30 SP (Rec: 05/25/21 16:56 SP [id number]) Physical Therapy Treatment Education Education Provided Precautions,Weight Bearing Status,Post-Op Packet,Safety Other Treatments Other Treatment Performed Recalled 06/05, missed no ER, cues provided for small step during pivots and not allow LLE to pass RLE. M7 PT-IP Assessment and Plan Start: 05/24/21 16:23 Freq: NEEDED Status: Discharge Protocol: Document 05/25/21 15:30 SP (Rec: 05/25/21 16:56 SP [id number]) PT Summary Assessment and Plan Potential Rehabilitation Potential Fair Status of Condition at Evaluation Stable Summary Impairments Pain,ROM,Strength,Balance, Coordination,Sensation,Tone, Cognition,Bed Mobility, Transfers,Gait,Activity Tolerance Progress Towards Goals Progressing Toward Goals,Slow Progress due to Pain,Slow Progress due to Activity Tolerance Assessment Summary Pt requiring CG- Min A sit<> stand, gait using fWW, Cg- Min during stair mgt. cues for maintaining hip precautions during mobility, provided safety cues and assist throughout tx. Pt dizziness post mobility, BP and HR stable, recovered dizziness 2 min reclined in chair LEs elevated. Pt is ok to return home when medically cleared with 24 assist available. She will call outpt therapy to set up tomorrow, hoping to get appt early next week. Goals Bed Mobility Goal Independent Transfer Goal Independent,Front Wheeled Walker Gait Goal Independent,Front Wheel Walker Gait Distance 200 Days to Meet Goals 5 Frequency of Treatment Frequency Of Treatment Twice a Day Treatment Plan Physical Therapy Treatment Plan Bed Mobility Training,Transfer Training,Gait Training, Therapeutic Exercise,Balance Retraining,Post Op Education, Discharge Planning,Hot or Cold Pack,Neuromuscular Re-ed, Coordination Retraining,Manual Therapy Other Recommendations and Next Treatment LE ex, recheck precautions, Focus transfers. Precautions Anterior Hip Precautions No Hip Extension,No Hip External Rotation Weight Bearing Status Weight Bearing Status Weight Bear as Tolerated Allowed Weight Bearing Amount (enter % WBAT RLE or #) (%) Recommendations To Nursing Amount of Assist Needed 1 Person Assist Discharge Recommendations PT Discharge Recommendations Home with Assistance,Home with 24 Assist Available, Outpatient PT Transportation Needs at Discharge Private Vehicle
[2021-05-25] MEDS: ONDANSETRON 4 MG ODT PO (16:24)
== END 2021-05-25 16:41 | disposition home or self-care (01) ==
LOC: OR 05:52 → AC 05:52
PROVIDERS: PCP Physician Assistant Medical; Referring Provider Orthopaedic Surgery; Visit Provider Orthopaedic Surgery
PROC: (CPT 27130; principal; 2021-05-24 07:45)
DX: M16.11 Unilateral primary osteoarthritis, right hip (principal)
CPT/HCPCS: 27130; 36415; 72170; 73502; 76000; 85014; 85018; 94760; 97116; 97161; 97530; C1776; C9290; J0171; J0690; J1100; J2250; J2405; J2704; J3010